=== PATIENT | male | born 1985 | race Native Hawaiian/Other Pacific Islander ===

== ENCOUNTER 2018-11-13 13:03 | Emergency (ER) | payer BC ==
[~2018-11-13] VITALS: Ht 182.9 cm; Wt 117.9 kg
[2018-11-13 14:27] LABS: PLATELET COUNT 152 K/uL (142-355)
[2018-11-13 14:38] LABS: POTASSIUM 3.8 mmol/L (3.6-5.2)
[2018-11-13 16:25] VITALS: BP 109/77; TEMP 97.7
== END 2018-11-13 16:25 | disposition home or self-care (01) ==
LOC: ED 13:03
PROVIDERS: Emergency Medicine
DX: R94.5 Abnormal results of liver function studies (principal); G44.209 Tension-type headache, unspecified, not intractable; B34.9 Viral infection, unspecified
CPT/HCPCS: 36415; 80053; 80307; 81000; 82150; 83690; 85027; 96360; 96375; 96376; 99284; J1885; J2270; J2405